=== PATIENT | female | born 1975 | race Caucasian/White ===

== ENCOUNTER 2019-02-28 02:21 | Emergency (ER) | payer MEDICAID, OTHER ==
[~2019-02-28] VITALS: Ht 160 cm; Wt 75.5 kg
[~2019-02-28 02:21] MED LIST: HYDR-4011 PO; METH250T5 PO; OMEP20CA16 PO; ONDA4TAB14 PO; PREN1TAB49 PO
[2019-02-28 02:23] VITALS: Ht 160 cm; Wt 75.5 kg
[2019-02-28] MEDS ORDERED: ONDANSETRON 4 MG INJ IV STA (03:16)
[2019-02-28] MEDS ORDERED: morphine 4 MG/ML VIAL IV STA (03:16)
[2019-02-28] MEDS ORDERED: TRAM50TA2 PO (04:52)
[2019-02-28] MEDS ORDERED: ONDA4TAB14 PO (04:52)
--- NOTE | 2019-02-28 04:54 | ERD ---
ER Documentation Chief Complaint Chief Complaint LUQ PAIN X'S 2 DAYS HPI This is a 44-year-old female complains of left upper quadrant pain for the past 2 days. Patient says pain is mild to moderate in intensity and tends to radiate from her right upper quadrant. Denies any fevers or chills. Mild nausea but no vomiting. No other current complaints. ROS All systems reviewed and are negative except as per history of present illness. Medications Home Meds Active Scripts Ondansetron (Ondansetron Odt) 4 Mg Tab.rapdis, 4 MG PO Q6H PRN for NAUSEA AND/OR VOMITING, #10 TAB Prov:VANESSA SINGH. 02/28/19 Tramadol HCl (Tramadol HCl) 50 Mg Tablet, 50 MG PO Q4 PRN for PAIN, #20 TAB Prov:VANESSA SINGH. 02/28/19 Ondansetron (Ondansetron Odt) 4 Mg Tab.rapdis, 4 MG PO Q6H PRN for NAUSEA AND/OR VOMITING, #6 TAB Prov:REGINALDO MENCHACA DO 09/12/16 Hydrocodone/Acetaminophen (Mabie 5-325 Tablet) 1 Each Tablet, 1 TAB PO Q6H PRN for PAIN, #7 TAB Prov:REGINALDO MENCHACA DO 09/12/16 Omeprazole* (Omeprazole*) 20 Mg Capsule.dr, 20 MG PO BID, #20 Prov:REGINALDO MENCHACA DO 09/12/16 Reported Medications Methyldopa* (Aldomet*) 250 Mg Tablet, 250 MG PO Q8 05/18/12 Vits W-Ca,Fe,Fa(<1MG) () 1 Tab Tablet, 1 TAB PO DAILY 05/18/12 Vits W-Ca,Fe,Fa(<1MG) () 1 Tab Tablet, 1 TAB PO 04/20/12 Allergies Allergies: Coded Allergies: No Known Allergy (Unverified Allergy, Unknown, 11/07/07) PMhx/Soc History of Surgery: No Anesthesia Reaction: No Hx Neurological Disorder: No Hx Respiratory Disorders: No Hx Cardiac Disorders: Yes (Htn) Hx Psychiatric Problems: No Hx Alcohol Use: No Hx Substance Use: No Hx Tobacco Use: No Smoking Status: Never smoker Physical Exam Vitals Vital Signs Date Temp Pulse Resp B/P (MAP) Pulse Ox O2 O2 Flow FiO2 Time Delivery Rate 02/28/19 54 14 123/61 98 Room Air 04:30 (81) 02/28/19 97.7 61 18 185/106 100 02:23 (132) Physical Exam Const: No acute distress Head: Atraumatic Eyes: Normal Conjunctiva ENT: Normal External Ears, Nose and Mouth. Neck: Full range of motion. No meningismus. Resp: Clear to auscultation bilaterally Cardio: Regular rate and rhythm, no murmurs Abd: Soft, non tender, non distended. Normal bowel sounds Skin: No petechiae or rashes Back: No midline or flank tenderness Ext: No cyanosis, or edema Neur: Awake and alert Psych: Normal Mood and Affect Result Diagram: 02/28/19 0324 02/28/19 0324 Results 24 hrs Laboratory Tests Test 02/28/19 03:24 02/28/19 03:40 White Blood Count 9.1 10^3/ul Red Blood Count 4.45 10^6/ul Hemoglobin 12.5 g/dl Hematocrit 38.6 % Mean Corpuscular Volume 86.7 fl Mean Corpuscular Hemoglobin 28.1 pg Mean Corpuscular Hemoglobin Concent 32.4 g/dl Red Cell Distribution Width 13.6 % Platelet Count 308 10^3/UL Mean Platelet Volume 10.4 fl Immature Granulocytes % 0.500 % Neutrophils % 68.4 % Lymphocytes % 21.4 % Monocytes % 7.1 % Eosinophils % 1.9 % Basophils % 0.7 % Nucleated Red Blood Cells % 0.0 /100WBC Immature Granulocytes # 0.050 10^3/ul Neutrophils # 6.2 10^3/ul Lymphocytes # 2.0 10^3/ul Monocytes # 0.7 10^3/ul Eosinophils # 0.2 10^3/ul Basophils # 0.1 10^3/ul Nucleated Red Blood Cells # 0.0 10^3/ul Urine Color STRAW Urine Clarity CLEAR Urine pH 5.0 Urine Specific Callender 1.012 Urine Ketones NEGATIVE mg/dL Urine Nitrite NEGATIVE mg/dL Urine Bilirubin NEGATIVE mg/dL Urine Urobilinogen NEGATIVE mg/dL Urine Leukocyte Esterase NEGATIVE Arleen/ul Urine Microscopic RBC 2 /HPF Urine Microscopic WBC 0 /HPF Urine Squamous Epithelial Cells FEW /HPF Urine Hemoglobin 2+ mg/dL Urine Glucose NEGATIVE mg/dL Urine Total Protein NEGATIVE mg/dl Sodium Level 144 mmol/L Potassium Level 3.6 mmol/L Chloride Level 106 mmol/L Carbon Dioxide Level 26 mmol/L Anion Gap 12 Blood Urea Nitrogen 13 mg/dl Creatinine 0.64 mg/dl Est Glomerular Filtrat Rate mL/min > 60 mL/min Glucose Level 133 mg/dl Calcium Level 9.2 mg/dl Total Bilirubin 0.3 mg/dl Direct Bilirubin 0.00 mg/dl Indirect Bilirubin 0.3 mg/dl Aspartate Amino Transf (AST/SGOT) 16 IU/L Alanine Aminotransferase (ALT/SGPT) 17 IU/L Alkaline Phosphatase 97 IU/L Troponin I < 0.012 ng/ml Total Protein 8.0 g/dl Albumin 4.4 g/dl Globulin 3.60 g/dl Albumin/Globulin Ratio 1.22 Lipase 107 U/L POC Beta HCG, Qualitative NEGATIVE Current Medications Medications Dose Sig/Gabriela Start Time Status Last (Trade) Ordered Route PRN Stop Time Admin Dose Reason Admin Morphine 4 mg ONCE STAT 02/28/19 DC 02/28/19 Sulfate IV 03:16 03:42 (morphine) 02/28/19 03:18 Ondansetron 4 mg ONCE STAT 02/28/19 DC 02/28/19 HCl (Zofran IV 03:16 03:42 Inj) 02/28/19 03:18 Procedures/MDM Medical decision making: Is a 44-year-old female as well as with gallstones. Jerry sotelo's gastrointestinal symptoms have stabilized while in the department. No evidence of severe dehydration, sepsis, or surgical abdomen. Extensive discussion with family and patient that occult disease cannot be ruled out. 8 hour recheck for repeat abdominal exam is planned. Departure Diagnosis: Primary Impression: Abdominal pain Abdominal location: unspecified location Qualified Codes: R10.9 - Unspecified abdominal pain Condition: Stable Patient Instructions: Gallstones VANESSA SINGH Feb 28, 2019 04:54
[2019-02-28 05:15] VITALS: BP 131/75; PULSE 59; RESP 12
== END 2019-02-28 05:15 | disposition home or self-care (01) ==
LOC: E/R 02:21
DX: R10.12 Left upper quadrant pain (principal); I10 Essential (primary) hypertension; R11.0 Nausea
CPT/HCPCS: 36415; 71045; 74176; 80053; 81001; 81025; 83690; 84484; 85025; 93005; 96374; 96375; J2270; J2405; Z7502

== ENCOUNTER 2019-04-26 06:18 | Day surgery (SDC) | payer OTHER ==
[2019-04-26] VITALS (15 sets, daily range): BP systolic 131–157; BP diastolic 74–89; PULSE 62–104; RESP 10–17; Ht 149.9 cm; Wt 74.1 kg
[~2019-04-26] VITALS: Ht 149.9 cm; Wt 74.1 kg
[~2019-04-26 06:18] MED LIST changes: +CEFAZOLIN 2 GM/50 ML (PMX) 50 ML IVPB SCH; +CIPR500T4 PO; +LISI1TAB6 PO; +RANI300T PO; +SOD CHLORIDE 0.9% 1,000 ML IV ONE; +TRAM50TA2 PO; +VIT D2
[2019-04-26] MEDS ORDERED: ROCURONIUM 50 MG INJ ONE (07:48)
[2019-04-26] MEDS ORDERED: MIDAZOLAM 1 MG/ML 2 ML INJ ONE (07:48)
[2019-04-26] MEDS ORDERED: FENTAnyl 50 MCG/ML VIAL ONE (07:48)
[2019-04-26] MEDS ORDERED: CEFAZOLIN 1 GM INJ ONE (07:48)
[2019-04-26] MEDS ORDERED: GLYCOPYRROLATE 0.4 MG INJ ONE (07:48)
[2019-04-26] MEDS ORDERED: PROPOFOL 20 ML ONE (07:48)
[2019-04-26] MEDS ORDERED: NEOSTIGMINE 3 MG/3 ML SYRINGE ONE (07:48)
[2019-04-26] MEDS ORDERED: DEXAMETHASONE 4 MG/ML 5 ML INJ ONE (07:49)
[2019-04-26] MEDS ORDERED: ONDANSETRON 4 MG INJ ONE (07:49)
[2019-04-26] MEDS ORDERED: ROPIVACAINE 0.5 % 30 ML VIAL ONE (07:56)
--- NOTE | 2019-04-26 08:09 | PREAC ---
Date/Time of Note Date/Time of Note DATE: 04/26/19 TIME: 08:08 Anesthesia Eval and Record Evaluation Time Pre-Procedure Interview DATE: 04/26/19 TIME: 08:08 Age 44 Sex female NPO: 8 hrs Preoperative diagnosis symptomatic cholelithiasis Planned procedure lap derrick Past Medical History Past Medical History: Includes Cardio: HTN GI: Obesity Surgery & Anesthesia Issues No known issue Meds Anticoagulation: No Beta Melvina within 24 hr: No Reason Beta Melvina not given: Pt. not on B-Melvina Active Scripts Omeprazole* (Omeprazole*) 20 Mg Capsule.dr, 20 MG PO BID, #20 Prov:REGINALDO MENCHACA DO 09/12/16 Reported Medications [Vit D2] No Conflict Check, [address] INTLU 04/26/19 Ciprofloxacin Hcl* (Ciprofloxacin Hcl*) 500 Mg Tablet, 500 MG PO BID, #14 TAB 04/26/19 Ranitidine Hcl* (Ranitidine Hcl*) 300 Mg Tablet, 300 MG PO HS, #30 TAB 04/26/19 Lisinopril/Hydrochlorothiazide (Lisinopril-Hctz 20-12.5 mg Tab) 1 Each Tablet, 1 EACH PO, TAB 04/26/19 Discontinued Reported Medications Methyldopa* (Aldomet*) 250 Mg Tablet, 250 MG PO Q8 05/18/12 Vits W-Ca,Fe,Fa(<1MG) () 1 Tab Tablet, 1 TAB PO DAILY 05/18/12 Vits W-Ca,Fe,Fa(<1MG) () 1 Tab Tablet, 1 TAB PO 04/20/12 Discontinued Scripts Ondansetron (Ondansetron Odt) 4 Mg Tab.rapdis, 4 MG PO Q6H PRN for NAUSEA AND/OR VOMITING, #10 TAB Prov:VANESSA SINGH 02/28/19 Tramadol HCl (Tramadol HCl) 50 Mg Tablet, 50 MG PO Q4 PRN for PAIN, #20 TAB Prov:VANESSA SINGH 02/28/19 Ondansetron (Ondansetron Odt) 4 Mg Tab.rapdis, 4 MG PO Q6H PRN for NAUSEA AND/OR VOMITING, #6 TAB Prov:REGINALDO MENCHACA DO 09/12/16 Hydrocodone/Acetaminophen ([place] 5-325 Tablet) 1 Each Tablet, 1 TAB PO Q6H PRN for PAIN, #7 TAB Prov:BERNARDAREGINALDO SONG DO 09/12/16 Current Medications Cefazolin Sodium/ Dextrose 50 ml @ 100 mls/hr PRE-OP IVPB ; Start 04/26/19 at 06:00; Stop 04/26/19 at 15:00 Sodium Chloride 1,000 ml @ 75 mls/hr [id number] ONCE IV ; Start 04/26/19 at 06:00; Stop 04/26/19 at 19:19 Meds reviewed: Yes Allergies Coded Allergies: No Known Allergy (Unverified Allergy, Unknown, 11/07/07) Allergies Reviewed: Yes Labs/Studies Labs Reviewed: Reviewed by anesthesiologist test: Negative Pre-procedure Exam Last vitals Vital Signs Date Temp Pulse Resp B/P (MAP) Pulse Ox O2 O2 Flow FiO2 Time Delivery Rate 04/26/19 97.8 64 16 131/76 100 Room Air 06:32 (94) Airway: Adequate mouth opening, Adequate thyromental dist Mallampati: Mallampati II Teeth: Normal Lung: Normal Heart: Normal ASA Physical Status ASA physical status: 2 Emergency: None Planned Anesthetic General/MAC: ETT Nerve block: TAP (bilateral) Planned Pain Management Parenteral pain med Pre-operative Attestations Prior to commencing anesthesia and surgery, the patient was re-evaluated, there was verification of: *The patient's identity *The results of appropriate recent lab work and preoperative vital signs *The above evaluation not changing prior to induction *Anesthetic plan, risk benefits, alternative and complications discussed with patient/family; questions answered; patient/family understands, accepts and wishes to proceed. Ramin Angela M.D. Apr 26, 2019 08:09
[2019-04-26] MEDS ORDERED: EPHEDrine 25 MG/5 ML SYG IV PRN (08:30)
[2019-04-26] MEDS ORDERED: OXYCODONE/ACETAMINOPHEN (5/325) TAB PO PRN ×2 (08:30)
[2019-04-26] MEDS ORDERED: MEPERIDINE 25 MG INJ IV PRN (08:30)
[2019-04-26] MEDS ORDERED: HYDROmorphONE 1 MG/5 ML IV SYRINGE IV PRN ×2 (08:30)
[2019-04-26] MEDS ORDERED: TRIMETHOBENZAMIDE 100 MG/ML VIAL IM PRN (08:30)
[2019-04-26] MEDS ORDERED: ALBUTEROL 0.083% (NEB) 2.5 MG/3 ML AMP HHN PRN (08:30)
[2019-04-26] MEDS ORDERED: LABETALOL HCL 20MG INJ IV PRN (08:30)
[2019-04-26] MEDS ORDERED: hydrALAzine 20 MG INJ IV PRN (08:30)
[2019-04-26] MEDS ORDERED: FENTAnyl 50 MCG/ML VIAL IV PRN ×3 (08:30)
[2019-04-26] MEDS ORDERED: DIPHENHYDRAMINE 50 MG INJ IV PRN (08:30)
[2019-04-26] MEDS ORDERED: ONDANSETRON 4 MG INJ IV PRN (08:30)
[2019-04-26] MEDS ORDERED: MIDAZOLAM 1 MG/ML 2 ML INJ IV PRN (08:30)
[2019-04-26] MEDS ORDERED: IPRATROPIUM (NEB) 0.5 MG/2.5 ML AMP HHN PRN (08:30)
[2019-04-26] MEDS ORDERED: SUGAMMADEX SODIUM 200 MG/2 ML VIAL IV ONE (09:12)
--- NOTE | 2019-04-26 09:21 | OPR ---
Date/Time of Note Date/Time of Note DATE: 04/26/19 TIME: 09:18 Operative Report Procedure Date: Apr 26, 2019 Preoperative Diagnosis symptomatic gallstones Postoperative Diagnosis same Operation/Procedure Performed laparoscopic cholecystectomy Surgeon see signature line Burial Vault Setter none Anesthesia Type: general Estimated Blood Loss: 10 - 50 ml's Transfusion none Specimen gallbladder Grafts/Implants none Complications none Pt Condition Post Procedure: stable Indications This is a 44-year-old female with some tender gallstones. She required surgical excision of her gallbladder. Risks alternatives benefits and personally discussed the patient. Patient expressed understanding and consents to the operation. Procedure Description Patient is taken to the OR and prepped and draped in usual sterile fashion. Surgical timeout was performed. IV antibiotics given. Infraumbilical transverse incision was made with a 15 blade. Dissection with cautery skin onto the fascia. The fascia was grasped with Patrica's and divided with curved Fuentes scissors. 0 Vicryl use this was placed into the fascia. Summers trocar was introduced. Pneumoperitoneum was established. Midepigastric 12 mm optical trochars placed under direct visualization. Right upper quadrant upper flank 5 mm optical trochars were placed under direct visualization. Upon initial inspection there are some adhesions to the gallbladder which were taken down bluntly. The gallbladder is grasped with the fundus and retracted and lateral cephalad direction. [place] graspers were used to dissect out the cystic duct and cystic artery. The critical view was established. Cystic duct was divided to close proximal to distal and the division is performed lap scopic scissors. Cystic artery was divided to close proximal clip distal and the divisions performed laparoscopic scissors. The gallbladder was taken off the gallbladder bed. Good hemostasis status. The gallbladder is retrieved Endo Catch bag. All ports were removed under direct visualization. Overdiuresis tied down. Skin wa s closed using skin ozzie. A tap block was provided by the anesthesiologist at the beginning of the case. Dry dressings were applied. Edilma RODRÍGUEZ Apr 26, 2019 09:21
[2019-04-26] MEDS ORDERED: HYDROCODONE/APAP (5/325) TAB PO ONE (09:30)
--- NOTE | 2019-04-26 09:36 | PAC ---
Date/Time of Note Date/Time of Note DATE: 04/26/19 TIME: 09:35 Post-Anesthesia Notes Post-Anesthesia Note Last documented vital signs Vital Signs Date Temp Pulse Resp B/P (MAP) Pulse Ox O2 O2 Flow FiO2 Time Delivery Rate 04/26/19 97.8 64 16 131/76 100 Room Air 06:32 (94) Activity: WNL Respiratory function: WNL Cardiovascular function: WNL Mental status: Baseline Pain reasonably controlled: Yes Hydration appropriate: Yes Nausea/Vomiting absent: Yes Ramin Angela M.D. Apr 26, 2019 09:36
[2019-04-26] MEDS: HYDROmorphONE 1 MG/5 ML IV SYRINGE IV PRN ×2 (09:40→09:51)
== END 2019-04-26 10:55 | disposition home or self-care (01) ==
LOC: SDS 06:18
PROVIDERS: ATTEND Surgery
DX: K80.10 Calculus of gallbladder with chronic cholecystitis without obstruction (principal); I10 Essential (primary) hypertension; E66.9 Obesity, unspecified
CPT/HCPCS: 47562; 88304; J0690; J1100; J1170; J2175; J2250; J2405; J2710; J2795; J3010; Z7512; Z7610